=== PATIENT | female | born 1930 | race Two or more races ===

== ENCOUNTER 2017-06-07 17:17 | Emergency (ER) | payer MEDICARE, OTHER ==
[~2017-06-07] VITALS: Ht 149.9 cm; Wt 63.5 kg
[~2017-06-07 17:17] MED LIST: AML5T PO; AMLO10TA2; ASPI-231 PO; ATEN-60; ATEN-60 PO; BACL10TA PO; BENA20TA14; DIOVAN; FER325T PO; HYDR-2595; HYDR25TA4 PO; METOPROLOL; OMEP20CA74 PO; PRA25T PO
[2017-06-07] MEDS ORDERED: MORPHINE SULFATE 4 MG/ML SYR/VIAL IV ONE (21:45)
[2017-06-07] MEDS ORDERED: ONDANSETRON HCL 4 MG/2 ML VIAL IV ONE (21:45)
[2017-06-07] MEDS ORDERED: ETOMIDATE (2MG/ML) 20ML VIAL IV ONE (23:15)
[2017-06-08 02:50] LABS: Basophils # (auto) 0 uL; Basophils % (auto) 0.3 % (0.0-2.0); Eosinophils # (auto) 0.1 uL; Hematocrit 29.9 % (36.0-46.0); Hemoglobin 10.2 g/dL (12.2-16.2); Lymphocytes # (auto) 1.1 uL; Lymphocytes % (auto) 14.6 % (10.0-50.0); Mean Corpuscular Hemoglobin 33.8 pg (28.0-32.0); Mean Corpuscular Volume 99.6 fL (80.0-100.0); Monocytes # (auto) 0.8 uL; Monocytes % (auto) 10.3 % (0.0-12.0); Neutrophils # (auto) 5.5 uL; Neutrophils % (auto) 73.8 % (37.0-80.0); Platelet Count (auto) 298 10^3/uL (140-450); Red Cell Distribution Width 14.5 % (11.8-14.3); White Blood Cell 7.4 10^3/uL (4.4-10.8)
[2017-06-08 03:07] LABS: Partial Thromboplastin Time 30.1 sec (22.64-33.71); Prothrombin Time 10.9 sec (9.37-12.3)
[2017-06-08 03:16] LABS: Alanine Aminotransferase 21 U/L (13-56); Albumin 3.1 g/dL (3.4-5.0); Alkaline Phosphatase 115 U/L (45-117); Anion Gap 5 (5-15); Aspartate Aminotransferase 26 U/L (15-37); BUN/Creatinine Ratio 25.9; Bilirubin, Total 0.4 mg/dL (0.2-1.0); Blood Urea Nitrogen 50 mg/dL (7-18); Calcium 8.4 mg/dL (8.5-10.1); Carbon Dioxide 27 mmol/L (21-32); Chloride 108 mmol/L (98-107); GFR African American 32 mL/min; GFR Non-African American 26 mL/min; Glucose 111 mg/dL (74-106); Potassium 4.6 mmol/L (3.5-5.1); Sodium 140 mmol/L (136-145); Total Protein 6.6 g/dL (6.4-8.2)
[2017-06-08 04:18] VITALS: BP 122/57
[2017-06-08] MEDS ORDERED: HYDROcodone-ACET 5/325MG TAB PO ONE (06:15)
== END 2017-06-08 06:18 | disposition home or self-care (01) ==
LOC: ER 17:19
DX: S42.302A Unspecified fracture of shaft of humerus, left arm, initial encounter for closed fracture (principal); S42.352A Displaced comminuted fracture of shaft of humerus, left arm, initial encounter for closed fracture; M19.90 Unspecified osteoarthritis, unspecified site; I50.9 Heart failure, unspecified; I12.9 Hypertensive chronic kidney disease with stage 1 through stage 4 chronic kidney disease, or unspecified chronic kidney disease; N18.9 Chronic kidney disease, unspecified; K21.9 Gastro-esophageal reflux disease without esophagitis; E78.5 Hyperlipidemia, unspecified; Z79.82 Long term (current) use of aspirin; Z79.899 Other long term (current) drug therapy; W01.0XXA Fall on same level from slipping, tripping and stumbling without subsequent striking against object, initial encounter; Y93.01 Activity, walking, marching and hiking; Y92.89 Other specified places as the place of occurrence of the external cause; Y99.8 Other external cause status
CPT/HCPCS: 24500; 36415; 70486; 71045; 73030; 73060; 80053; 83880; 84443; 84484; 85025; 85610; 85730; 93005; 96374; 96375; 99152; 99285; J2270; J2405